=== PATIENT | female | born 1970 | race Caucasian/White ===

== ENCOUNTER 2018-11-01 14:07 | Emergency (ER) | payer BC, SELFPAY ==
[2018-11-01 14:15] VITALS: BP 137/85; PULSE 110; RESP 16; TEMP 36.7; O2SAT 99; BMI 38.2
[2018-11-01 16:08] VITALS: BP 98/60; PULSE 111; RESP 23; O2SAT 99
[2018-11-01 16:10] LABS: Add Manual Diff / Slide Review NO; Basophils Absolute Auto 0 /uL (0-100); Basophils Percent Auto 0.3 % (0-2); Eosinophils Absolute Auto 0 /uL (0-450); Hematocrit 32.5 % (36-46); Hemoglobin 10.9 g/dL (12.0-16.0); Lymphocytes Absolute Auto 1200 /uL (1100-4500); Lymphocytes Percent Auto 24.5 % (25-40); Mean Corpuscular HGB Conc 33.5 % (30-36); Mean Corpuscular Hemoglobin 29.6 PG (26-34); Mean Corpuscular Volume 88.3 fL (80-100); Monocytes Absolute Auto 500 /uL (0-900); Monocytes Percent Auto 10.3 % (3-14); Neutrophils Absolute Auto 3100 /uL (1500-7000); Neutrophils Percent Auto 64.9 % (50-75); Platelet Count 186 X10^3/uL (150-400); Red Blood Cell Count 3.68 X10^6/uL (4.0-5.2); Red Cell Distribution Width 12.1 % (11.6-14.8); White Blood Cell Count 4.8 X10^3/uL (4.5-11.0)
--- NOTE | 2018-11-01 16:11 | ED_ITS ---
HPI - Arrhythmia/Palpitations General Chief Complaint: Arrhythmia/Palpitations Stated Complaint: Rapid HR, Nausea, Headache Time Seen by Provider: 11/01/18 15:28 Source: patient Mode of arrival: ambulatory Limitations: no limitations History of Present Illness HPI narrative: Patient is a 48-year-old female who presents heart palpitations overall not feeling well. History of Graves disease he had outpatient blood work which showed that she was back into Graves TPO at 71, free T4 5.3. She was seen by her PCP 2 weeks ago started on metoprolol to help with her heart palpitations. Refer to endocrinology, however she can't get in Endocrine in till noon. She overall is not feeling great. Loss of hair swelling on her legs with erythema. No fevers. MD complaint: rapid heart beat Duration: constant Related Data Home Medications Medication Instructions Recorded Confirmed metoprolol succinate 25 mg PO BID 11/01/18 11/01/18 trazodone 150 mg PO BEDTIME PRN 11/01/18 11/01/18 venlafaxine 112.5 mg PO DAILY 11/01/18 11/01/18 Previous Rx's Medication Instructions Recorded methimazole 5 mg PO Q8H #90 tab 11/01/18 Allergies Allergy/AdvReac Type Severity Reaction Status Date / Time No Known Drug Allergies Allergy Verified 11/01/18 14:15 Review of Systems Review of Systems ROS Unobtainable: All systems reviewed & are unremarkable except as noted in HPI and below Constitutional Denies chills, Denies fever(s), Denies lethargy and Denies weakness Cardiovascular Denies chest pain, Reports rapid heart rate, Reports palpitations, Denies dyspnea and Denies dyspnea on exertion Respiratory Denies cough, Denies dyspnea, Denies dyspnea on exertion and Denies wheezing Gastrointestinal Gastrointestinal: Denies abdominal pain, Denies change in bowel habits, Denies diarrhea, Denies nausea and Denies vomiting Genitourinary Denies hematuria, Denies flank pain, Denies urinary incontinence and Denies urinary urgency Integumentary/Breasts Reports erythema Neurologic Denies weakness Endocrine Reports palpitations Comments: Hair loss Allergic/Immunologic Denies wheezing [facility] Medical History Graves disease (Acute) Social History Smoking Status: Unknown if ever smoked Social History (Reviewed 05/02/19 @ 17:23 by BRITTNI Siddiqi Smoking Status: Unknown if ever smoked Exam Initial Vital Signs Initial Vital Signs: Vital Signs Temperature 98.1 F 11/01/18 14:15 Pulse Rate 110 H 11/01/18 14:15 Respiratory Rate 16 11/01/18 14:15 Blood Pressure 137/85 11/01/18 14:15 Pulse Oximetry 99 11/01/18 14:15 GENERAL: Well-appearing, well-nourished and in no acute distress. HEENT: Head atraumatic,EOMI, pupils reactive CARDIOVASCULAR: Tachycardic regular no murmur RESPIRATORY: Breath sounds equal bilaterally, no wheezes rales or rhonchi. ABDOMEN: Soft, nontender. Normoactive bowel sounds all 4 quadrants. No guarding or rebound. EXTREMITIES: Normal range of motion, no clubbing. Bilateral lower extremity nonpitting Neurovascularly intact NEUROLOGICAL: Alert and oriented x4.Normal gait and speech. SKIN: Bilateral lower extremity erythema, blanchable Course Orders Ordered: ED Orders 11/01/18 16:04 Complete Blood Count AUTO DIFF Stat Comprehensive Metabolic Panel Stat Lipase Stat Thyroid Stimulating Hormone Stat Troponin & CK Cardiac Panel Stat Vital Signs - 8 hr 11/01/18 14:15 11/01/18 16:08 11/01/18 17:00 Temperature 98.1 F Pulse Rate 110 H 111 H 111 H Respiratory Rate 16 23 14 Blood Pressure 137/85 Blood Pressure [Right Arm] 98/60 120/60 Pulse Oximetry 99 99 98 11/01/18 17:31 Temperature Pulse Rate 113 H Respiratory Rate 18 Blood Pressure Blood Pressure [Right Arm] 130/70 Pulse Oximetry 99 MDM - Arrhythmia/Palpitations Medical Records Attestation: I reviewed the patient's medical records. Lab Data Attestation: I reviewed the patient's lab results. Result diagrams: 11/01/18 16:04 11/01/18 16:04 Lab Results 11/01/18 11/01/18 11/01/18 Range/Units 16:04 16:04 16:04 WBC 4.8 (4.5-11.0) X10^3/uL RBC 3.68 L (4.0-5.2) X10^6/uL Hgb 10.9 L (12.0-16.0) g/dL Hct 32.5 L (36-46) % MCV 88.3 (80-100) fL MCH 29.6 (26-34) PG MCHC 33.5 (30-36) % RDW 12.1 (11.6-14.8) % Plt Count 186 (150-400) X10^3/uL Neut % (Auto) 64.9 (50-75) % Lymph % (Auto) 24.5 L (25-40) % [place] % (Auto) 10.3 (3-14) % Eos % (Auto) 0.0 L (2-4) % Baso % (Auto) 0.3 (0-2) % Neut # (Auto) 3100 (3725-6769) /uL Lymph # (Auto) 1200 (7027-8490) /uL [place] # (Auto) 500 (0-900) /uL Eos # (Auto) 0 (0-450) /uL Baso # (Auto) 0 (0-100) /uL Sodium 136 L (137-145) mmol/L Potassium 4.1 (3.4-5.1) mmol/L Chloride 102 (98-107) mmol/L Carbon Dioxide 26 (22-32) mmol/L BUN 11 (7-17) mg/dL Creatinine 0.50 L (0.52-1.04) mg/dL Estimated GFR > 60.0 (>60) mL/min BUN/Creatinine Ratio 22.0 (6-22) Glucose 91 (70-100) mg/dL Calcium 9.0 (8.4-10.2) mg/dL Total Bilirubin 0.7 (0.2-1.3) mg/dL AST 37 H (14-36) IU/L ALT 90 H (9-52) IU/L Alkaline Phosphatase 113 (38-126) U/L Total Creatine Kinase < 20 L (30-135) U/L CK-MB (CK-2) TNP CK-MB (CK-2) Rel Index TNP Troponin I < 0.012 (0.01-0.034) ng/mL Total Protein 6.2 L (6.3-8.2) g/dL Albumin 3.3 L (3.5-5.0) g/dL Globulin 2.9 (1.7-4.1) g/dL Albumin/Globulin Ratio 1.1 (1.0-2.8) Lipase 30 (23-300) U/L TSH < 0.02 L (0.47-4.68) uIU/mL MDM Narrative Medical decision making narrative: I spoke with Dr. 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 Hassan Agrees with starting methimazole, 3 times a day and will follow up next week. Patient can get into endocrinology inhaled December. I think patient would benefit from starting this medication. Discharge Plan Departure Patient Disposition: Home Clinical Impression: Graves disease Discharge Date/Time: 11/01/18 17:39 Interventions: ED Discharge Assessment Last Done: 11/01/18 17:38 Instructions: Hyperthyroidism Activity Restrictions/Additional Instructions: *You have been diagnosed with hyperthyroid/Graves disease *What to do: Recommend that he follow up with endocrinology. *Continue to take medications as directed Methimazole 5mg 3 times a day *Follow up with your primary care provider, call PCP tomorrow to schedule follow up appointment within the next 1-2 weeks. Keep appointment with endocrinology *Return to ER if you should have her palpitations, passing out, lightheadedness or any new, worsening or concerning symptoms Prescriptions: New methimazole 5 mg tablet 5 mg PO Q8H Qty: 90 RF: 0 No Action venlafaxine 37.5 mg capsule,extended release 24hr 112.5 mg PO DAILY RF: 0 trazodone 100 mg tablet 150 mg PO BEDTIME PRN (Reason: Sleep) RF: 0 metoprolol succinate 25 mg tablet extended release 24 hr 25 mg PO BID RF: 0 Referrals: Jodie Hassan MD [Primary Care Provider] -
[2018-11-01 16:24] LABS: Alanine Aminotransferase 90 IU/L (9-52); Albumin 3.3 g/dL (3.5-5.0); Albumin Globulin Ratio 1.1 (1.0-2.8); Alkaline Phosphatase 113 U/L (38-126); Aspartate Aminotransferase 37 IU/L (14-36); Bilirubin Total 0.7 mg/dL (0.2-1.3); Blood Urea Nitrogen 11 mg/dL (7-17); Carbon Dioxide 26 mmol/L (22-32); Chloride 102 mmol/L (98-107); Creatine Kinase < 20 U/L (30-135); Estimated Glomerular Filt Rate > 60.0 mL/min (>60); Globulin 2.9 g/dL (1.7-4.1); Glucose 91 mg/dL (70-100); HEMOLYSIS < 15 (0-50); Lipase 30 U/L (23-300); Potassium 4.1 mmol/L (3.4-5.1); Sodium 136 mmol/L (137-145); Total Protein 6.2 g/dL (6.3-8.2)
[2018-11-01 16:36] LABS: Troponin I < 0.012 ng/mL (0.01-0.034)
[2018-11-01 17:00] VITALS: BP 120/60; PULSE 111; RESP 14; O2SAT 98
[2018-11-01 17:02] LABS: Thyroid Stimulating Hormone < 0.02 uIU/mL (0.47-4.68)
[2018-11-01 17:31] VITALS: BP 130/70; PULSE 113; RESP 18; O2SAT 99
== END 2018-11-01 17:39 | disposition home or self-care (01) ==
PROVIDERS: Emergency Provider Emergency Medicine; PCP Family Medicine
DX: E05.00 Thyrotoxicosis with diffuse goiter without thyrotoxic crisis or storm (principal); R00.0 Tachycardia, unspecified; R42 Dizziness and giddiness; L53.9 Erythematous condition, unspecified; L65.9 Nonscarring hair loss, unspecified
CPT/HCPCS: 36591; 80053; 82550; 83690; 84443; 84484; 85025; 99283